=== PATIENT | male | born 1990 | race Caucasian/White ===

== ENCOUNTER 2017-12-13 08:41 | Emergency (ER) | payer MEDICAID ==
[~2017-12-13] VITALS: Ht 190.5 cm; Wt 85.4 kg
[~2017-12-13 08:41] MED LIST: AZIT250T PO; DIAZ5TAB PO
[2017-12-13] MEDS ORDERED: CLIN300C85 PO (09:18)
[2017-12-13] MEDS ORDERED: HYDR-3965 PO (09:18)
[2017-12-13 09:24] VITALS: BP 141/78
== END 2017-12-13 09:25 | disposition home or self-care (01) ==
LOC: ER 08:42
DX: K04.7 Periapical abscess without sinus (principal); G89.29 Other chronic pain; F12.90 Cannabis use, unspecified, uncomplicated; Z88.0 Allergy status to penicillin; Z88.5 Allergy status to narcotic agent; Z79.2 Long term (current) use of antibiotics; Z79.899 Other long term (current) drug therapy; Z59.0 Homelessness; Z56.0 Unemployment, unspecified
CPT/HCPCS: 99281; 99283

== ENCOUNTER 2018-02-12 08:35 | Emergency (ER) | payer MEDICAID ==
[~2018-02-12] VITALS: Ht 185.4 cm; Wt 87.0 kg
[~2018-02-12 08:35] MED LIST changes: +CLIN300C85 PO
[2018-02-12 08:44] VITALS: BP 130/86
[2018-02-12] MEDS ORDERED: CLIN300C85 PO (09:17)
[2018-02-12] MEDS ORDERED: TETanus/Pertussis (Acell)/Diphther VAC/PF (Tdap-Adult) 0.5ml syringe IM ONE (09:20)
== END 2018-02-12 09:37 | disposition home or self-care (01) ==
LOC: ER 08:36
DX: S91.332A Puncture wound without foreign body, left foot, initial encounter (principal); K08.89 Other specified disorders of teeth and supporting structures; G89.29 Other chronic pain; F12.90 Cannabis use, unspecified, uncomplicated; Z59.0 Homelessness; Z56.0 Unemployment, unspecified; Z88.0 Allergy status to penicillin; Z88.5 Allergy status to narcotic agent; Z79.2 Long term (current) use of antibiotics; Z79.899 Other long term (current) drug therapy; W22.8XXA Striking against or struck by other objects, initial encounter; Y93.89 Activity, other specified; Y92.89 Other specified places as the place of occurrence of the external cause; Y99.8 Other external cause status
CPT/HCPCS: 90471; 90715; 99283

== ENCOUNTER 2019-04-11 17:01 | Emergency (ER) | payer MEDICAID ==
[~2019-04-11] VITALS: Ht 185.4 cm; Wt 113.0 kg
[~2019-04-11 17:01] MED LIST changes: +CLIN-90 PO; -CLIN300C85 PO
[2019-04-11 17:54] LABS: BASOPHILS # (AUTO) 0.1 X10'3 (0-0.2); BASOPHILS % (AUTO) 0.4 % (0-1); EOSINOPHILS % (AUTO) 0 % (0-6); HEMATOCRIT 45.1 % (42.0-52.0); HEMOGLOBIN 15.5 g/dl (14.0-17.9); LYMPHOCYTES # (AUTO) 1.2 X10'3 (1.1-4.8); LYMPHOCYTES % (AUTO) 6.8 % (21-51); MEAN CORPUSCULAR HEMOGLOBIN 27.2 PG (27.0-31.0); MEAN CORPUSCULAR HGB CONC 34.3 g/dL (33.0-36.5); MEAN CORPUSCULAR VOLUME 79.3 FL (78-98); MEAN PLATELET VOLUME 8.2 FL (7.4-10.4); MONOCYTES # (AUTO) 0.9 X10'3 (0-0.9); NEUTROPHILS # (AUTO) 16.1 X10'3 (1.8-7.7); NEUTROPHILS % (AUTO) 87.8 % (42-75); PLATELET COUNT 222 X10'3 (140-440); RED BLOOD COUNT 5.69 X10'6 (4.70-6.10); RED CELL DISTRIBUTION WIDTH 15.2 % (11.5-14.5); WHITE BLOOD COUNT 18.3 X10'3 (4.5-11.0)
[2019-04-11 18:06] LABS: ALANINE AMINOTRANSFERASE 42 U/L (12-78); ALKALINE PHOSPHATASE 113 IU/L (46-116); ANION GAP 5 (8-16); ASPARTATE AMINO TRANSFERASE 22 U/L (10-37); BILIRUBIN,TOTAL 0.5 MG/DL (0.1-1.0); BLOOD UREA NITROGEN 6 MG/DL (7-18); BUN/CREATININE RATIO 7.4 (5.4-32.0); CALCIUM 9.3 MG/DL (8.5-10.1); CHLORIDE 101 MMOL/L (99-107); CREATININE 0.81 MG/DL (0.60-1.10); GLUCOSE 99 MG/DL (70-104); LIPASE 89 U/L (73-393); POTASSIUM 3.4 MMOL/L (3.5-5.1); SODIUM 134 MMOL/L (135-145); TOTAL CARBON DIOXIDE 27.7 MMOL/L (24-32); eGFR > 90 ML/MIN
[2019-04-11] MEDS ORDERED: ondansetron 4mg rapidly disintigrating tab PO ONE (18:25)
--- NOTE | 2019-04-11 19:20 | NUR ---
NOTIFIED YVONNE TOM OF NA 134 K 3.4 . PT CURRENT UP OUT OF BED TO BATHROOM FOR URINE SPECIMAN
[2019-04-11 20:02] VITALS: BP 143/96
== END 2019-04-11 20:03 | disposition home or self-care (01) ==
LOC: ER 17:02
DX: K52.9 Noninfective gastroenteritis and colitis, unspecified (principal); R11.2 Nausea with vomiting, unspecified; R10.84 Generalized abdominal pain; G89.29 Other chronic pain; F12.90 Cannabis use, unspecified, uncomplicated; Z59.0 Homelessness; Z56.0 Unemployment, unspecified; Z87.891 Personal history of nicotine dependence; Z88.0 Allergy status to penicillin; Z88.5 Allergy status to narcotic agent; Z79.899 Other long term (current) drug therapy
CPT/HCPCS: 36415; 80053; 83690; 84145; 85025; 99283

== ENCOUNTER 2019-04-20 19:28 | Emergency (ER) | payer MEDICAID ==
[~2019-04-20] VITALS: Ht 188 cm; Wt 113.0 kg
[2019-04-20] MEDS ORDERED: acetaminophen 325mg tablet PO ONE (20:40)
[2019-04-20] MEDS ORDERED: ketorolac trometh inj. 60 MG/2 ML VIAL IM ONE (20:40)
[2019-04-20 20:53] VITALS: BP 128/78
== END 2019-04-20 21:19 | disposition home or self-care (01) ==
LOC: ER 19:30
DX: S62.396A Other fracture of fifth metacarpal bone, right hand, initial encounter for closed fracture (principal); G89.29 Other chronic pain; F32.9 Major depressive disorder, single episode, unspecified; F10.99 Alcohol use, unspecified with unspecified alcohol-induced disorder; F12.90 Cannabis use, unspecified, uncomplicated; Z59.0 Homelessness; Z56.0 Unemployment, unspecified; Z88.0 Allergy status to penicillin; Z88.5 Allergy status to narcotic agent; Z79.899 Other long term (current) drug therapy; W22.8XXA Striking against or struck by other objects, initial encounter; Y93.89 Activity, other specified; Y92.89 Other specified places as the place of occurrence of the external cause; Y99.8 Other external cause status; Y90.9 Presence of alcohol in blood, level not specified
CPT/HCPCS: 73130; 96372; 99283; J1885